=== PATIENT | male | born 1940 | race Caucasian/White ===

== ENCOUNTER 2019-03-07 16:11 | Inpatient (IN) | payer BC, MEDICARE, OTHER ==
[~2019-03-07] VITALS: Ht 172.7 cm; Wt 66.1 kg
[2019-03-07 16:56] LABS: BASOPHILS # (AUTO) 0.05 x10^3/uL (0-0.1); BASOPHILS % (AUTO) 1 % (0-1); EOSINOPHILS % (AUTO) 2 % (1-7); LYMPHOCYTES # (AUTO) 1.36 x10^3/uL (1-3.4); LYMPHOCYTES % (AUTO) 19 % (22-44); MD NO; MEAN CORPUSCULAR HEMOGLOBIN 34.4 pg (27.5-34.5); MEAN CORPUSCULAR VOLUME 104.3 fL (81-97); MEAN PLATELET VOLUME 6.3 fL (7.4-10.4); MONOCYTES # (AUTO) 0.52 x10^3/uL (0.2-0.8); MONOCYTES % (AUTO) 7 % (2-9); NEUTROPHILS # (AUTO) 4.98 x10^3/uL (1.8-6.8); NEUTROPHILS % (AUTO) 71 % (42-75); PLATELET COUNT 350 x10^3/uL (130-400); RED BLOOD COUNT 2.95 x10^6/uL (4.38-5.82); RED CELL DISTRIBUTION WIDTH 14.4 % (9.4-14.8)
[2019-03-07] MEDS ORDERED: SODIUM CHLORIDE FLUSH 10ML SYR IVF PRN (17:00)
[2019-03-07] MEDS ORDERED: SODIUM CHLORIDE FLUSH 10ML SYR IVF ONE (17:00)
--- NOTE | 2019-03-07 17:10 | NUR ---
LATE NOTE ENTRY FOR 1624: Pt transfered by EMS from [facility] with altered mental status and infection of surgical wound across abdomen s/p "tummy tuck" one week ago. [facility] CT pt's head, saw "something" and sent pt for an MRI. Pt ambulates from EMS [facility] to ED [facility] with unsteady gait and balance. Pt c/o "short term memory loss over the last few days, and pain of the skin on my abdomen." Pt denies cp, sob, n/v/d, syncope, or trauma. CMS intact. Pt connected to NIBP, continous pulse ox, and breading machine tender. Both bed rails up for safety measures and call light within reach. No needs expressed at this time.
--- NOTE | 2019-03-07 17:50 | NUR ---
Provided report to AMIE Keita. All questions answered. Pt ready to transfer to floor from ED.
[2019-03-07] MEDS ORDERED: PIPERACILLIN/TAZO/PMX 3.375GM 50 ML IV SCH (18:30)
[2019-03-07] MEDS ORDERED: BISACODYL 10 MG SUPP PR PRN (18:30)
[2019-03-07] MEDS ORDERED: ONDANSETRON ODT 4 MG PO PRN (18:30)
[2019-03-07] MEDS ORDERED: VANCOMYCIN PER PHARMACY MC PRN (18:30)
[2019-03-07] MEDS ORDERED: ACETAMINOPHEN 325 MG TABLET PO PRN (18:30)
[2019-03-07] MEDS ORDERED: POLYETHYLENE GLYCOL 17 GM PACKET PO PRN (18:30)
[2019-03-07] MEDS ORDERED: morphine SULFATE 10 MG/ML, 1ML IVPush PRN (18:30)
--- NOTE | 2019-03-07 18:30 | NUR ---
Pt not in room at this time. Pt transported on gurney to ultrasound.
--- NOTE | 2019-03-07 18:49 | NUR ---
Provided report to AMIE Romano. All questions answered. AMIE Romano to assume care of pt. LIAM.
[2019-03-07] MEDS ORDERED: PHARMACOKINETIC MONITORING MC PRN (19:00)
[2019-03-07 19:56] VITALS: BP 131/73
[2019-03-07] MEDS ORDERED: VANCOMYCIN 1,300 MG in SODIUM CHLORIDE 0.9% 250 ML IV ONE (20:00)
[2019-03-07] MEDS ORDERED: PHARMACOKINETIC CONSULTATION MC ONE (20:00)
[2019-03-07] MEDS ORDERED: LAMO100T PO (20:46)
[2019-03-07] MEDS ORDERED: LAMO150T2 PO (20:46)
[2019-03-07] MEDS: HEPARIN 5,000 UNITS/ML, 1ML SQ SCH (21:27)
[2019-03-07] MEDS: SODIUM CHLORIDE 0.9% 1,000 ML IV SCH (21:27)
[2019-03-07] MEDS: PIPERACILLIN/TAZO/PMX 3.375GM 50 ML IV SCH (21:27)
[2019-03-07] MEDS: LAMOTRIGINE 100 MG TABLET PO SCH (21:36)
[2019-03-07 21:51] LABS: MICROSCOPIC NOT IND
[2019-03-07 21:53] LABS: CULTURE INDICATED? NO
[2019-03-08] MEDS: PIPERACILLIN/TAZO/PMX 3.375GM 50 ML IV SCH ×3 (03:03→17:27)
[2019-03-08 03:10] VITALS: BP 136/74
[2019-03-08 05:27] LABS: BASOPHILS # (AUTO) 0.07 x10^3/uL (0-0.1); BASOPHILS % (AUTO) 1 % (0-1); EOSINOPHILS # (AUTO) 0.08 x10^3/uL (0-0.4); EOSINOPHILS % (AUTO) 1 % (1-7); LYMPHOCYTES # (AUTO) 1.28 x10^3/uL (1-3.4); LYMPHOCYTES % (AUTO) 16 % (22-44); MD NO; MEAN CORPUSCULAR HGB CONC 33.4 g/dL (33.2-36.2); MEAN CORPUSCULAR VOLUME 104.6 fL (81-97); MEAN PLATELET VOLUME 6.9 fL (7.4-10.4); MONOCYTES # (AUTO) 0.54 x10^3/uL (0.2-0.8); MONOCYTES % (AUTO) 7 % (2-9); NEUTROPHILS # (AUTO) 6.04 x10^3/uL (1.8-6.8); NEUTROPHILS % (AUTO) 76 % (42-75); PLATELET COUNT 314 x10^3/uL (130-400); RED BLOOD COUNT 2.84 x10^6/uL (4.38-5.82); RED CELL DISTRIBUTION WIDTH 14.1 % (9.4-14.8)
[2019-03-08] MEDS: HEPARIN 5,000 UNITS/ML, 1ML SQ SCH ×3 (05:34→22:17)
[2019-03-08] MEDS: SODIUM CHLORIDE 0.9% 1,000 ML IV SCH ×3 (05:34→21:31)
[2019-03-08 05:35] LABS: ALBUMIN 2.6 g/dL (3.4-5.0); ANION GAP 10 mmol/L (5-15); CALCIUM 8.6 mg/dL (8.5-10.1); CHLORIDE 115 mmol/L (98-107)
[2019-03-08 05:39] LABS: ALANINE AMINOTRANSFERASE 25 U/L (12-78); ALKALINE PHOSPHATASE 85 U/L (45-117); BILIRUBIN,TOTAL 0.7 mg/dL (0.2-1.0); CREATININE 1.48 mg/dL (0.7-1.3)
[2019-03-08 06:49] VITALS: BP 113/61
[2019-03-08] MEDS: LAMOTRIGINE 100 MG TABLET PO SCH ×2 (11:50→21:31)
[2019-03-08] MEDS: SENNA/DOCUSATE TABLET PO SCH (11:50)
[2019-03-08 12:33] VITALS: BP 129/70
[2019-03-08] MEDS ORDERED: ALLO300T PO (16:29)
[2019-03-08] MEDS ORDERED: ROSU20TA2 PO (16:29)
[2019-03-08] MEDS ORDERED: LISI40TA PO (16:29)
[2019-03-08] MEDS ORDERED: AMLO-150 PO (16:29)
[2019-03-08] MEDS: ASCORBIC ACID 500 MG TABLET PO SCH (17:27)
[2019-03-08 19:02] VITALS: BP 158/79
[2019-03-08] MEDS: VANCOMYCIN 1,200 MG in SODIUM CHLORIDE 0.9% 250 ML IV SCH (22:16)
[2019-03-09] MEDS: PIPERACILLIN/TAZO/PMX 3.375GM 50 ML IV SCH ×4 (00:12→18:36)
[2019-03-09 00:52] VITALS: BP 106/68
[2019-03-09 05:29] LABS: BASOPHILS # (AUTO) 0.05 x10^3/uL (0-0.1); BASOPHILS % (AUTO) 1 % (0-1); EOSINOPHILS # (AUTO) 0.16 x10^3/uL (0-0.4); EOSINOPHILS % (AUTO) 2 % (1-7); LYMPHOCYTES # (AUTO) 1.37 x10^3/uL (1-3.4); LYMPHOCYTES % (AUTO) 20 % (22-44); MD NO; MEAN CORPUSCULAR HGB CONC 32.1 g/dL (33.2-36.2); MEAN PLATELET VOLUME 6.2 fL (7.4-10.4); MONOCYTES # (AUTO) 0.54 x10^3/uL (0.2-0.8); MONOCYTES % (AUTO) 8 % (2-9); NEUTROPHILS # (AUTO) 4.81 x10^3/uL (1.8-6.8); NEUTROPHILS % (AUTO) 70 % (42-75); PLATELET COUNT 305 x10^3/uL (130-400); RED BLOOD COUNT 2.71 x10^6/uL (4.38-5.82); RED CELL DISTRIBUTION WIDTH 14.2 % (9.4-14.8)
[2019-03-09 05:39] LABS: ALBUMIN 2.2 g/dL (3.4-5.0); ANION GAP 9 mmol/L (5-15); CALCIUM 8.5 mg/dL (8.5-10.1); CHLORIDE 116 mmol/L (98-107); CREATININE 1.22 mg/dL (0.7-1.3)
[2019-03-09] MEDS: SODIUM CHLORIDE 0.9% 1,000 ML IV SCH (05:50)
[2019-03-09] MEDS: HEPARIN 5,000 UNITS/ML, 1ML SQ SCH ×3 (05:51→21:46)
[2019-03-09 08:11] VITALS: BP 133/66
[2019-03-09] MEDS: SENNA/DOCUSATE TABLET PO SCH (09:00)
[2019-03-09] MEDS: MULTIVIT-MINERALS/IRON ORAL SOL PO SCH (09:28)
[2019-03-09] MEDS: ASCORBIC ACID 500 MG TABLET PO SCH (09:28)
[2019-03-09] MEDS: LAMOTRIGINE 100 MG TABLET PO SCH ×2 (09:29→21:14)
[2019-03-09 12:48] VITALS: BP 130/76
[2019-03-09 19:50] VITALS: BP 150/69
[2019-03-09] MEDS: VANCOMYCIN 1,200 MG in SODIUM CHLORIDE 0.9% 250 ML IV SCH (21:46)
[2019-03-10] MEDS: PIPERACILLIN/TAZO/PMX 3.375GM 50 ML IV SCH ×3 (00:14→13:34)
[2019-03-10 02:04] VITALS: BP 142/79
[2019-03-10 04:48] LABS: BASOPHILS # (AUTO) 0.05 x10^3/uL (0-0.1); BASOPHILS % (AUTO) 1 % (0-1); EOSINOPHILS # (AUTO) 0.27 x10^3/uL (0-0.4); EOSINOPHILS % (AUTO) 4 % (1-7); LYMPHOCYTES # (AUTO) 1.87 x10^3/uL (1-3.4); LYMPHOCYTES % (AUTO) 24 % (22-44); MD NO; MEAN CORPUSCULAR HEMOGLOBIN 33.8 pg (27.5-34.5); MEAN CORPUSCULAR HGB CONC 32.4 g/dL (33.2-36.2); MEAN CORPUSCULAR VOLUME 104.5 fL (81-97); MEAN PLATELET VOLUME 6.6 fL (7.4-10.4); MONOCYTES # (AUTO) 0.51 x10^3/uL (0.2-0.8); MONOCYTES % (AUTO) 7 % (2-9); NEUTROPHILS # (AUTO) 4.97 x10^3/uL (1.8-6.8); NEUTROPHILS % (AUTO) 65 % (42-75); PLATELET COUNT 318 x10^3/uL (130-400); RED BLOOD COUNT 2.78 x10^6/uL (4.38-5.82); RED CELL DISTRIBUTION WIDTH 14.3 % (9.4-14.8)
[2019-03-10 04:51] LABS: ALBUMIN 2.2 g/dL (3.4-5.0); ANION GAP 7 mmol/L (5-15); CALCIUM 8.8 mg/dL (8.5-10.1); CHLORIDE 114 mmol/L (98-107)
[2019-03-10] MEDS: HEPARIN 5,000 UNITS/ML, 1ML SQ SCH ×3 (05:55→23:19)
[2019-03-10 07:07] VITALS: BP 148/88
[2019-03-10] MEDS: LAMOTRIGINE 100 MG TABLET PO SCH ×2 (08:13→21:11)
[2019-03-10] MEDS: MULTIVIT-MINERALS/IRON ORAL SOL PO SCH (08:13)
[2019-03-10] MEDS: ASCORBIC ACID 500 MG TABLET PO SCH (08:14)
[2019-03-10] MEDS: SENNA/DOCUSATE TABLET PO SCH (08:15)
[2019-03-10 13:08] VITALS: BP 137/79
[2019-03-10] MEDS: SULFAMETH./TRIMETHOPRIM DS 800MG/160MG TABLET PO SCH ×2 (15:25→21:11)
[2019-03-10 19:52] VITALS: BP 169/81
[2019-03-11 01:46] VITALS: BP 145/71
[2019-03-11 06:33] VITALS: BP 160/86
[2019-03-11] MEDS: HEPARIN 5,000 UNITS/ML, 1ML SQ SCH (06:38)
[2019-03-11] MEDS: ASCORBIC ACID 500 MG TABLET PO SCH (07:31)
[2019-03-11] MEDS: LAMOTRIGINE 100 MG TABLET PO SCH (07:31)
[2019-03-11] MEDS: SULFAMETH./TRIMETHOPRIM DS 800MG/160MG TABLET PO SCH (07:31)
[2019-03-11] MEDS: MULTIVIT-MINERALS/IRON ORAL SOL PO SCH (07:32)
[2019-03-11] MEDS: SENNA/DOCUSATE TABLET PO SCH (07:36)
[2019-03-11] MEDS ORDERED: AMLODIPINE 5 MG TABLET PO SCH (09:00)
[2019-03-11] MEDS ORDERED: LISINOPRIL 40 MG TABLET PO SCH (09:00)
[2019-03-11] MEDS ORDERED: SULF-169 PO (11:07)
[2019-03-11 12:20] VITALS: BP 153/82
[2019-03-11 14:30] VITALS: BP 146/73
== END 2019-03-11 15:00 | disposition home health service (06) | DRG 862 ==
LOC: ED 16:44 → EDIP 17:42 → 4NOR 19:20 → DCLOUNGE 03-11 15:00
PROVIDERS: ADMIT Hospitalist; ATTEND Hospitalist
PROC: 0T9B70Z Drainage of Bladder with Drainage Device, Via Natural or Artificial Opening (ICD-10-PCS; principal; 2019-03-07)
DX: T81.41XA Infection following a procedure, superficial incisional surgical site, initial encounter (principal); A41.9 Sepsis, unspecified organism; R65.21 Severe sepsis with septic shock; G93.41 Metabolic encephalopathy; T81.31XA Disruption of external operation (surgical) wound, not elsewhere classified, initial encounter; L03.311 Cellulitis of abdominal wall; D62 Acute posthemorrhagic anemia; E46 Unspecified protein-calorie malnutrition; N17.9 Acute kidney failure, unspecified; D53.9 Nutritional anemia, unspecified; E78.5 Hyperlipidemia, unspecified; I10 Essential (primary) hypertension; M10.9 Gout, unspecified; Z66 Do not resuscitate; Y83.8 Other surgical procedures as the cause of abnormal reaction of the patient, or of later complication, without mention of misadventure at the time of the procedure; Y92.89 Other specified places as the place of occurrence of the external cause; Z86.73 Personal history of transient ischemic attack (TIA), and cerebral infarction without residual deficits; Z68.22 Body mass index [BMI] 22.0-22.9, adult
CPT/HCPCS: 36415; 76770; 80053; 80069; 81003; 82607; 83735; 85025; 86301; 87040; 87070; 87075; 87077; 87186; 87205; 99285; G0378; J1644; J2543; J3370; J7030; J7050

== ENCOUNTER → 2020-05-23 | Outpatient (CLI) | payer MEDICARE ==
[~2020-05-23] MED LIST: ALLO300T PO; AMLO-150 PO; LAMO100T8 PO; LAMO150T4 PO; LISI40TA PO; REGADENOSON 0.4 MG/5 ML SYRINGE ONE; ROSU20TA2 PO; SULF-169 PO
== END | disposition home or self-care (01) ==
LOC: CFH 08:55
PROVIDERS: ATTEND Internal Medicine Cardiovascular Disease
DX: Z01.810 Encounter for preprocedural cardiovascular examination (principal); I25.10 Atherosclerotic heart disease of native coronary artery without angina pectoris; I63.9 Cerebral infarction, unspecified; I10 Essential (primary) hypertension
CPT/HCPCS: 78452; 93017; A9502; J2785